=== PATIENT | female | born 1955 | race Two or more races ===

== ENCOUNTER 2024-11-25 08:27 | Inpatient (IN) | payer OTHER ==
[~2024-11-25] VITALS: Ht 171.4 cm; Wt 69.0 kg
--- NOTE | 2024-11-25 08:56 | ED.PDOC ---
GI ASSESSMENT HPI Comments 69 year old female brought in by EMS presents to the ED with a chief complaint of abdominal pain onset 1 week. Per EMS, patient has a PMHx Colon Cancer, Bladder cancer and HTN. Patient has been experiencing RLQ pain that radiates to RUQ for the past week. She is also experiencing nausea, diarrhea generalized weakness, chills. Denies chest pain, vomiting, shortness of breath, cough, congestion, dysuria, hematuria. No other symptoms or modifying factors present at this time. 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 Family History Family History: Reviewed,noncontributory to illness, No family hx of Cancer, No family hx of DM, No family hx of Heart jose roberto, No family hx of HTN, No family hx ofKidney jose roberto, No family hx of Liver jose roberto, No family hx of Lung jose roberto, No family hx of Stroke Social History Smoker: Non-Smoker Alcohol: Denies ETOH Use Drugs: Denies Drug Use Lives In: Home Constitutional: reports: chills, weakness; denies: diaphoresis, fatigue, fever, malaise, sweats, others EENTM: denies: blurred vision, double vision, ear bleeding, ear discharge, ear drainage, ear pain, ear ringing, eye pain, eye redness, hearing loss, mouth pain, mouth swelling, nasal discharge, nose bleeding, nose congestion, nose pain, photophobia, tearing, throat pain, throat swelling, voice changes, others Respiratory: denies: cough, hemoptysis, orthopnea, SOB at rest, shortness of breath, SOB with excertion, stridor, wheezing, others Cardiovascular: denies: chest pain, dizzy spells, diaphoresis, Dyspnea on exertion, edema, irregular heart beat, left arm pain, lightheadedness, palpit ations, PND, syncope, others Gastrointestinal: reports: abdominal pain, diarrhea, nausea; denies: abdomen distended, blood streaked bowels, constipated, dysphagia, difficulty swallowing, hematemesis, melena, poor appetite, poor fluid intake, rectal bleeding, rectal pain, vomiting, others Genitourinary: denies: abnormal vagina bleeding, burning, dyspareunia, dysuria, flank pain, frequency, hematuria, incontinence, pain, , vagina discharge, urgency, others Neurological: denies: dizziness, fainting, headache, left sided numbness, left sided weakness, numbness, paresthesia, pre-existing deficit, right sided numbness, right sided weakness, seizure, speech problems, tingling, tremors, weakness, others Musculoskeletal: denies: back pain, gout, joint pain, joint swelling, muscle pain, muscle stiffness, neck pain, others Integumetry: denies: bruises, change in color, change in hair/nails, dryness, laceration, lesions, lumps, rash, wounds, others Allergic/Immunocompromised: denies: Difficulty Healing, Frequent Infections, Hives, Itching, others Hematologic/Lymphatic: denies: anemia, blood clots, easy bleeding, easy bruising, swollen glands, others Endocrine: denies: excessive hunger, excessive sweating, excessive thirst, excessive urination, flushing, intolerance to cold, intolerance to heat, unexplained weight gain, unexplained weight loss, others Psychiatric: denies: anxiety, bipolar disorder, depression, hopeless, panic disorder, schizophrenia, sleepless, suicidal, others All Other Systems: Reviewed and Negative Physical Exam General Appearance: Moderate Distress, Normal HEENT: Normal ENT Inspection, Pharynx Normal, TMs Normal Neck: Full Range of Motion, Non-Tender, Normal, Normal Inspection Respiratory: Chest Non-Tender, Lungs Clear, No Accessory Muscle Use, No Respiratory Distress, Normal Breath Sounds Cardiovascular: No Edema, No JVD, No Murmur, No Gallop, Normal Peripheral Pulses, Regular Rate/Rhythm Breast Exam: Deferred Gastrointestinal: No Organomegaly, Non Tender, No Pulsatile Mass, Normal Bowel Sounds, Soft Genitalia: Deferred Pelvic: Deferred Rectal: Deferred Extremities: No calf tenderness, Normal capillary refill, Normal inspection, Normal range of motion, Non-tender, No pedal edema Musculoskeletal : Apperance: Normal Neurologic: Alert, voice intercept technician II-XII nml as Tested, No Motor Deficits, Normal Affect, Normal Mood, No Sensory Deficits Cerebellar Function: NOT DONE Reflexes: NOT DONE Skin: Dry, Normal Color, Warm Peripheral Pulses: 3+ Radial (R), 3+ Radial (L) Lymphatic: No Adenopathy Was a procedure done? Was a procedure done?: No GI differential Dx Differential Diagnosis: Constipation, Diverticular disease, Esophagitis, Gastritis/PUD, Gastroenteritis X-Ray, Labs, Meds, VS Vital Signs Date Time Temp Pulse Resp B/P (MAP) Pulse Ox O2 Delivery O2 Flow Rate FiO2 11/25/24 08:35 98.7 77 16 158/76 (103) 95 Lab Test 11/25/24 09:22 11/25/24 09:08 Range/Units White Blood Count 8.8 4.4-10.8 10^3/uL Red Blood Count 4.13 4.0-5.20 10^6/uL Hemoglobin 11.9 L 12.2-16.2 g/dL Hematocrit 36.6 36.0-46.0 % Mean Corpuscular Volume 88.8 80.0-100.0 fL Mean Corpuscular Hemoglobin 28.8 28.0-32.0 pg Mean Corpuscular Hemoglobin Concent 32.4 32.0-36.0 g/dL Red Cell Distribution Width 16.4 H 11.8-14.3 % Platelet Count 539 H 140-450 10^3/uL Mean Platelet Volume 6.5 L 6.9-10.8 fL Neutrophils (%) (Auto) 82.0 H 37.0-80.0 % Lymphocytes (%) (Auto) 11.5 10.0-50.0 % Monocytes (%) (Auto) 5.4 0.0-12.0 % Eosinophils (%) (Auto) 0.3 0.0-7.0 % Basophils (%) (Auto) 0.8 0.0-2.0 % Neutrophils # (Auto) 7.2 1.6-8.6 10 ^3/uL Lymphocytes # (Auto) 1.0 0.4-5.4 10 ^3/uL Monocytes # (Auto) 0.5 0-1.3 10 ^3/uL Eosinophils # (Auto) 0 0-0.8 10 ^3/uL Basophils # (Auto) 0.1 0-0.2 10 ^3/uL Nucleated Red Blood Cells 0.0 % Sodium Level 139 136-145 mmol/L Potassium Level 3.5 3.5-5.1 mmol/L Chloride Level 101 98-107 mmol/L Carbon Dioxide Level 32 H 20-31 mmol/L Anion Gap 6 5-15 Blood Urea Nitrogen 31 H 9-23 mg/dL Creatinine 1.81 H 0.550-1.02 mg/dL Glomerular Filtration Rate Calc 30 >90 mL/min BUN/Creatinine Ratio 17.1 10.0-20.0 Serum Glucose 112 H 74-106 mg/dL Calcium Level 11.5 H 8.7-10.4 mg/dL Troponin I High Sensitivity 5 </=34 ng/L Urine Color Yellow Yellow Urine Clarity Clear Clear Urine pH 7.0 5.0-9.0 Urine Specific [place] 1.024 1.001-1.035 Urine Protein 1+ H Negative Urine Ketones Negative Negative Urine Blood 1+ H Negative /uL Urine Nitrite Negative Negative Urine Bilirubin Negative Negative Urine Urobilinogen 2 H Negative mg/dL Urine Leukocyte Esterase Negative Negative /uL Urine RBC 23 0 - 4 /hpf Urine WBC 3 0 - 5 /hpf Urine Squamous Epithelial Cells Few <5 /hpf Urine Bacteria None seen None Seen /hpf Urine Glucose Normal Normal mg/dL Patient alert. Brought by paramedics. Cancer history. Generalized weakness. WBC within normal limits. Chronic condition. BUN creatinine elevated. Establish intravenous access. Was given fluids. Anemia due to cancer. ATN. Reviewed her history. Explained to the patient. Continue cardiac monitoring. Time of 1ST Reevaluation: 08:57 Reevaluation 1ST: Unchanged Patient Education/Counseling: Diagnosis, Treatment, Prognosis Family Education/Counseling: No Family Present Additional Information I reviewed the following notes from patient's past medical encounters: none The following tests were ordered, and results were reviewed by me: TROP, CBC, XY CHEST, UA, BMP Additional Information was gathered from interviewing the following independent historians: EMS I reviewed and agreed with the following test results read by other providers: XY CHEST I discussed treatment and results with medical personnel and patient Departure 1 Departure Time of Disposition: 17:25 Impression: Primary Impression: Generalized weakness Additional Impressions: ATN (acute tubular necrosis) Anemia Qualified Codes: D64.9 - Anemia, unspecified Disposition: ADMITTED INPATIENT Admit to: Med Surg Condition: Guarded Critical Care Note Critical Care Time?: No Stability Stability form required: No Heart Score Heart Score: Heart Score Response (Comments) Value History N/A 0 EKG N/A 0 Age N/A 0 Risk Factors N/A 0 Troponin N/A 0 Total 0 I personally scribed for ROBSON GRANGER MD ([email or web address]) on 11/25/24 at 08:56. Electronically submitted by Silvia Restrepo ([email or web address]). I personally scribed for ROBSON GRANGER MD ([email or web address]) on 11/25/24 at 09:09. Electronically submitted by Silvia Restrepo ([email or web address]). ROBSON GRANGER MD Nov 25, 2024 08:56
[2024-11-25 09:09] LABS: Urine Bacteria None Seen /hpf (None Seen)
[2024-11-25 09:25] LABS: Urine Blood 1+ /uL (Negative); Urine Clarity Clear (Clear); Urine Color Yellow (Yellow); Urine Protein, UAD 1+ (Negative); Urine Specific Gravity 1.024 (1.001-1.035); Urine Squamous Epithelial Cell FEW /hpf (<5); Urine Urobilinogen 2 mg/dL (Negative); Urine WBC 3 /hpf (0 - 5)
[2024-11-25 09:42] LABS: Basophils # (auto) 0.1 10 ^3/uL (0-0.2); Basophils % (auto) 0.8 % (0.0-2.0); Eosinophils # (auto) 0 10 ^3/uL (0-0.8); Eosinophils % (auto) 0.3 % (0.0-7.0); Hematocrit 36.6 % (36.0-46.0); Hemoglobin 11.9 g/dL (12.2-16.2); Lymphocytes % (auto) 11.5 % (10.0-50.0); Mean Corpuscular Hemoglobin 28.8 pg (28.0-32.0); Mean Corpuscular Hgb Conc. 32.4 g/dL (32.0-36.0); Mean Corpuscular Volume 88.8 fL (80.0-100.0); Monocytes # (auto) 0.5 10 ^3/uL (0-1.3); Monocytes % (auto) 5.4 % (0.0-12.0); Neutrophils # (auto) 7.2 10 ^3/uL (1.6-8.6); Platelet Count (auto) 539 10^3/uL (140-450); Red Blood Cells 4.13 10^6/uL (4.0-5.20); Red Cell Distribution Width 16.4 % (11.8-14.3); White Blood Cell 8.8 10^3/uL (4.4-10.8)
[2024-11-25 09:44] LABS: Chloride 101 mmol/L (98-107); Potassium 3.5 mmol/L (3.5-5.1); Sodium 139 mmol/L (136-145)
[2024-11-25 09:45] LABS: Anion Gap 6 (5-15)
[2024-11-25 09:50] LABS: BUN/Creatinine Ratio 17.1 (10.0-20.0); Blood Urea Nitrogen 31 mg/dL (9-23); Calcium 11.5 mg/dL (8.7-10.4); Carbon Dioxide 32 mmol/L (20-31); Glucose 112 mg/dL (74-106)
--- NOTE | 2024-11-25 10:48 | DVH ---
CHEST RADIOGRAPH Indication: sob Technique: Single frontal view of the chest was obtained COMPARISON: None FINDINGS: Lines and Tubes: None Lungs: Diffuse reticular opacities predominantly in the lung bases may represent chronic lung scarrin g / fibrosis. No focal consolidation is seen. Pleura: No effusion. No pneumothorax. Cardiomediastinal contours: Unremarkable Bones: Scattered osseous degenerative changes. Moderate degenerative changes of the bilateral shoulde rs. IMPRESSION: 1. No acute disease. No focal consolidation. 2. Chronic lung scarring / fibrotic change.
--- NOTE | 2024-11-25 21:46 | DVH ---
Exam: CT CT AB PEL WO CON-NO ORAL OR IV, US ABDOMEN LIMITED History: ruq pain Comparison Study: None available at time of dictation. TECHNIQUE: Multidetector CT of the abdomen was performed from lung bases to pubic symphysis. Imaging was performed without IV contrast. Axial, coronal and sagittal multiplanar reformats were obtained fr om the axial data set by the technologist. Radiation Dose Information: CT Dose: CTDI volume is 5.07 mGy. Dose-length product is 214.18 mGy*cm FINDINGS: Evaluation of solid organs is limited due to lack of intravenous contrast use. Findings: Lung Bases: No acute or significant lung base finding. Normal heart size. No pleural or pericardial effusion. Liver: The liver is normal in size. No focal lesions. Gallbladder and Biliary Tree: Gallbladder appears to have been surgically removed. Spleen: Unremarkable Pancreas: The pancreas is grossly normal in appearance. Adrenal Glands: Unremarkable Kidneys: Kidneys are grossly normal without calculi or hydronephrosis. Bladder: Grossly unremarkable for degree of distention. Bowel: The stomach is grossly normal in appearance. Dilated fluid-filled loops of bowel are noted sug gesting small bowel obstruction.. The appendix is not visualized; however, no secondary findings of acute appendicitis identified. Ascites: Absent Lymphadenopathy: No mesenteric, retroperitoneal or periportal lymphadenopathy. Abdominal Wall and Mesentery: Unremarkable. Vasculature: The visualized abdominal aorta is normal in size and caliber. Evaluation of abdominal a nd pelvic vessels is limited due to lack of intravenous contrast. Pelvic Organs: Unremarkable Musculoskeletal: No aggressive focal bony lesions, acute fractures or dislocation. Soft tissues: Unremarkable IMPRESSION: 1. Postop changes small bowel in the right abdomen. 2. Dilated fluid-filled small bowel is seen suggesting small bowel obstruction. Radiation optimization: All CT scans at this facility use at least one of these dose optimization te chniques: automated exposure control mA and/or kV adjustment per patient size (includes targeted exa ms where dose is matched to clinical indication) or iterative reconstruction. HS:Y
[2024-11-25 22:27] LABS: Alanine Aminotransferase 11 U/L (7-40); Albumin 4.4 g/dL (3.2-4.8); Alkaline Phosphatase 115 U/L (46-116); Anion Gap 9 (5-15); Aspartate Aminotransferase 20 U/L (13-40); BUN/Creatinine Ratio 15.2 (10.0-20.0); Bilirubin, Total 0.4 mg/dL (0.2-1.0); Carbon Dioxide 26 mmol/L (20-31); Chloride 102 mmol/L (98-107); Potassium 3.9 mmol/L (3.5-5.1); Sodium 137 mmol/L (136-145); Total Protein 7.1 g/dL (5.7-8.2)
[2024-11-25 22:29] LABS: Blood Urea Nitrogen 31 mg/dL (9-23); Calcium 11.1 mg/dL (8.7-10.4); Glucose 126 mg/dL (74-106)
[2024-11-25 22:39] LABS: Lipase 46 U/L (12-53)
[2024-11-25] MEDS ORDERED: NITROGLYCERIN 0.4 MG SL TAB SL PRN (23:30)
[2024-11-25] MEDS ORDERED: MORPHINE SULFATE INJ 2 MG/ml SYRG IV PRN (23:30)
[2024-11-26] MEDS: SODIUM CHLORIDE 0.9% 1,000 ML IV SCH (00:21)
[2024-11-26 00:24] VITALS: PULSE 97; RESP 18; O2SAT 97
[2024-11-26] MEDS: ONDANSETRON HCL 4 MG/2 ML VIAL IV PRN (00:30)
[2024-11-26] MEDS: MORPHINE SULFATE INJ 2 MG/ml SYRG IV PRN (00:32)
--- NOTE | 2024-11-26 02:32 | DVHHP ---
ADMIT DATE: 11/25/2024 CHIEF COMPLAINT: Coming in with abdominal pain, nausea, and vomiting. HISTORY OF PRESENT ILLNESS: This is a 69-year-old female with significant past medical history of colon cancer, status post resection in 2000; left kidney cancer, status post nephrectomy in 2021 and a partial bladder resection in 2022, secondary to malignancy; underlying essential hypertension; and chronic kidney disease as well as acid reflux; who presents to Emergency Room with a chief complaint of upper abdominal quadrant pain with nausea and vomiting, reduced appetite. The patient says in the last few weeks, she has been dealing with abdominal pain; and has been started on a stool softener, which partially helped her. She has been having no bowel movements for few weeks' now. The last was last Tuesday, and she had a small one and apparently that was loose in nature. Today on arriving here to the Emergency Room, the patient says that she has also been feeling nauseous off-and-on, but no vomiting and she has not been eating much. She says everytime she eats or drinks, she feels nauseous, typically she says in the mornings. She has not had any fevers or chills, but feels like she has might have had some chills. No bloody or tarry stools. Otherwise, no chest pain or shortness of breath; no cough; no phlegm; no urinary frequency, urgency, or burning sensation. She said her last colonoscopy for cancer screening routine was about 6 years' ago. She was scheduled to have a colonoscopy a week ago, but never went to her appointment. PAST MEDICAL HISTORY: * Colon cancer. * Left kidney cancer. * Bladder cancer. * Essential hypertension. * Chronic kidney disease. * Acid reflux. PAST SURGICAL HISTORY: * Colon resection in 2000. * Left kidney nephrectomy in April 2022. * Partial bladder resection in 2022. SOCIAL HISTORY: She is a tobacco user, about 8 cigarettes a day, she has been smoking for over 30 years. No alcohol. No illicit drugs. MEDICATIONS: At home per medical reconciliation. MEDICATION ALLERGIES: TO CODEINE, CAUSES NAUSEA. REVIEW OF SYSTEMS: A 10-point review of system was covered with the patient and was negative, with the exception to all present in history of present illness. PHYSICAL EXAMINATION: VITAL SIGNS: Temperature of 98.3, pulse rate of 97, respiratory rate of 18, blood pressure of 134/68, pulse ox about 97% on room air. GENERAL: Seems to be alert and oriented x1, not in acute distress female, sitting up in a chair. HEENT: Normocephalic, atraumatic. Extraocular muscles are intact. Pupils are equally round, reactive to light and accommodations. Mucous membranes were dry. CARDIOVASCULAR: S1, S2 positive, tachycardic rhythm. No rubs, gallops, or murmurs. LUNGS: Clear to auscultation bilaterally. No wheeze, rhonchi, or rales. ABDOMEN: Seems to be soft, nontender. Seems to have some tenderness in the upper abdominal quadrants. No guarding. No rebound. Hypoactive bowel sounds, and no abdominal rigidity. Brown's sign was negative. EXTREMITIES: No lower extremity edema, clubbing, or cyanosis. NEUROLOGIC: No focal deficits. Cranial nerves testing II through XII overall seems to be intact. LABORATORY WORKUP: Shows a white count of 8.8, H and H of 11.9/36.2, platelet count of 539,000 with a neutrophil shift of 82%. Sodium of 139, potassium of 3.5, chloride of 101, carbon dioxide of 32, anion gap of 6, BUN of 31, creatinine of 1.81, estimated GFR of 30. Serum glucose of 112. AST of 20, ALT of 11, alkaline phosphatase of 115. Troponins of 5. Lipase of 46. Urinalysis was negative for nitrites, negative for leukocyte esterase, 23 rbc's, 3 wbc's. IMAGING: Chest x-ray was completed, it shows no acute disease, no focal consolidation. CT abdomen and pelvis without contrast was also completed, it shows postop changes in the small bowel and the right abdomen dilated; fluid-filled small bowel are seen, suggesting small bowel obstruction. Single organ ultrasound, the liver measures 12.2 in length and appears homogeneous; gallbladder is unremarkable; and common bile duct was not visualized. Negative ultrasound. Brown's sign was elicited. The right kidney was surgically removed in 2021. DIAGNOSES: * Abdominal pain. * Dehydration. * Renal insufficiency. PLAN: The patient will be admitted to medical/surgical floor under observation status for abdominal pain monitoring. The patient to have consultation with Dr. Hansen, General Surgery for evaluation for possible underlying small bowel obstruction. The patient will be maintained n.p.o. at this point in time. IV fluid hydration with normal saline. Strict I's and O's to be implemented. Pain control with morphine 2 mg IV p.r.n. for [id number] pain, Zofran 4 mg IV p.r.n. for nausea and vomiting. The patient to have a small bowel follow through in the a.m. The patient is a full code. SCDs to bilateral lower extremities for DVT prophylaxis. The patient will be placed on Protonix 40 mg IV daily for history of acid reflux. Further recommendations will depend on the patient's hospital progression. Brad Fernandez MD LM/ZAKI TID: [id number] RECEIPT: [id number]
[2024-11-26 07:24] LABS: Anion Gap 7 (5-15); Carbon Dioxide 28 mmol/L (20-31); Chloride 103 mmol/L (98-107); Potassium 3.6 mmol/L (3.5-5.1); Sodium 138 mmol/L (136-145)
[2024-11-26 07:25] LABS: Calcium 10.1 mg/dL (8.7-10.4)
[2024-11-26 07:30] LABS: BUN/Creatinine Ratio 20.3 (10.0-20.0); Glucose 98 mg/dL (74-106)
[2024-11-26 07:35] LABS: Blood Urea Nitrogen 40 mg/dL (9-23)
[2024-11-26 07:47] LABS: Basophils # (auto) 0 10 ^3/uL (0-0.2); Basophils % (auto) 0.4 % (0.0-2.0); Eosinophils # (auto) 0 10 ^3/uL (0-0.8); Eosinophils % (auto) 0.2 % (0.0-7.0); Hemoglobin 10.2 g/dL (12.2-16.2); Lymphocytes # (auto) 1.1 10 ^3/uL (0.4-5.4); Lymphocytes % (auto) 15.1 % (10.0-50.0); Mean Corpuscular Hemoglobin 29.6 pg (28.0-32.0); Mean Corpuscular Hgb Conc. 34.1 g/dL (32.0-36.0); Mean Corpuscular Volume 86.9 fL (80.0-100.0); Monocytes # (auto) 0.6 10 ^3/uL (0-1.3); Monocytes % (auto) 7.7 % (0.0-12.0); Neutrophils # (auto) 5.8 10 ^3/uL (1.6-8.6); Neutrophils % (auto) 76.6 % (37.0-80.0); Nucleated Red Blood Cells % 0.1 %; Platelet Count (auto) 469 10^3/uL (140-450); Red Blood Cells 3.46 10^6/uL (4.0-5.20); Red Cell Distribution Width 15.4 % (11.8-14.3); White Blood Cell 7.6 10^3/uL (4.4-10.8)
[2024-11-26 08:00] VITALS: PULSE 72; RESP 16; O2SAT 97
[2024-11-26 09:52] LABS: INR 1.03 (0.9-1.15); Prothrombin Time 10.9 sec (9.3-11.8)
[2024-11-26] MEDS: PANTOPRAZOLE 40 MG/10 ML VIAL INJ IV SCH (09:54)
[2024-11-26] MEDS: LACTATED RINGER'S 1,000 ML IV ONE (09:57)
[2024-11-26] MEDS ORDERED: GASTROGRAFIN 120 ML SOL ONE (09:57)
[2024-11-26 11:14] LABS: INR 1.03 (0.9-1.15); Partial Thromboplastin Time 26.6 SEC (24.5-34.5); Prothrombin Time 10.9 sec (9.3-11.8)
--- NOTE | 2024-11-26 12:50 | DVH ---
Procedure: XY SMALL BOWEL SERIES-W GASTROGRA Reason for study/Clinical History: abdominal pain Comparison Study: None available at time of dictation. Technique: Single contrast small bowel series performed. 20 mL given FINDINGS/IMPRESSION: Initial navy senior officer view of the abdomen and pelvis appears demonstrates no acute process. Contrast is identified within the colon by 2 hours. This represents a normal small bowel transit gregory clarke
--- NOTE | 2024-11-26 14:59 | DVHDS2 ---
New Physician D'charge PN Admitting Diagnosis Admitting Diagnosis sbo Discharge Diagnosis sbo, resolved Operations or Procedures small bowel series negative Reason(s) For Hospitalization Surgery Hospital Course 69 F who comes to ER for abd pain and n/v. Her CT abdomen revealed dilated loops of bowel suggestive of SBO. She was kept NPO and NG suction was started, Surgical consult was obtained and she underwent a small bowel series which showed no obstruction and normal transit of contrast. Surgery started on her clear liquid diet and the NG tube was discontinued. She is advanced to a clear liquid diet and if she tolerates her diet she can be discharged home. [facility] follow up. Treatment Plan Discharge Condition of Discharge Good Disposition Home Discharge Instructions Diet: Regular Diet comment: IF CLEAR LIQUID IS TOLERATED Activity: No Restrictions, As Tolerated Medications: see med sheet Follow Up Care Follow Up/Referral: pcp Discharge Statement: "Patient was advised to return to the ER or call 911 if any headaches, dizziness, shortness of breath, chest pain, abdominal pain, bleeding, fevers, or worsening of medical condition. Patient was counseled about treatment plan, medications, possible side effects, patientverbalized understanding. All questions were answered to the best of my ability. This discharge took greater then 30 minutes in planning, reviewing docum entation, counseling the patient, and discussing with other team members." NELSON BREWER MD Nov 26, 2024 14:59
[2024-11-26] MEDS ORDERED: HYDROmorphone HCL 2 MG/ML VL/or syr IV ONE (15:15)
--- NOTE | 2024-11-26 15:38 | DVHINCON2 ---
Date of service: Nov 26, 2024 History of Present Illness 69-year-old female with a history of multiple abdominal surgeries including a colectomy and left nephrectomy and partial bladder resection all for cancer now complaining of diffuse abdominal pain associated with nausea and vomiting. Patient reports no bowel movement for past several days. Denies any fevers or chills. Past Medical History Hypertension. Hyperlipidemia. History of colon cancer, bladder cancer, and kidney cancer. Past Surgical History As mentioned in HPI Family History Noncontributory Social History Smokes eight cigarettes a day. No alcohol for IV drug use. Allergies: Coded Allergies: Codeine (Verified Allergy, Unknown, 11/25/24) Current Medications Current Medications Medications (Trade) Dose Ordered Sig/Annette Route PRN Reason Start Time Stop Time Status Last Admin Sodium Chloride 1,000 ml @ 120 mls/hr Q8H20M IV 11/25/24 23:30 11/26/24 12:55 Ondansetron HCl (Zofran) 4 mg Q4HP PRN IV NAUSEA / VOMITING 11/25/24 23:30 11/26/24 00:30 Morphine Sulfate 2 mg Q4HPRN PRN IV SEVERE PAIN (7-10 PAIN SCALE) 11/25/24 23:30 11/26/24 11:20 Nitroglycerin (Ntrostat Sublingual) 0.4 mg Q5MINP PRN SL FOR CHEST PAIN 11/25/24 23:30 Morphine Sulfate 2 mg Q30M PRN IV FOR CHEST PAIN 11/25/24 23:30 Pantoprazole Sodium (Protonix) 40 mg DAILY IV 11/26/24 10:00 11/26/24 09:54 Vital Signs Vital Signs Date Time Temp Pulse Resp B/P (MAP) Pulse Ox O2 Delivery O2 Flow Rate FiO2 11/26/24 12:00 73 11 130/64 (86) 96 11/26/24 08:00 Room Air* 0 21 11/26/24 07:00 97.9 97.9 Physical Exam GEN: Age-appropriate female in no acute distress. Alert. HEENT: Normocephalic atraumatic. Moist mucous membranes. Anicteric sclerae. CV: RRR Respiratory: CTAB ABD: Well-healed midline incisional scar. There was diffuse tenderness to palpation with moderate distention. CT of the abdomen and pelvis: Dilated fluid-filled small bowel suggesting small bowel obstruction. Labs/Diagnostic Data Labs Test 11/26/24 10:18 11/26/24 06:02 11/25/24 22:00 11/25/24 09:22 Range/Units Prothrombin Time 10.9 9.3-11.8 sec Prothrombin Time INR 1.03 0.9-1.15 Activated Partial Thromboplast Time 26.6 24.5-34.5 SEC White Blood Count 7.6 4.4-10.8 10^3/uL Red Blood Count 3.46 L 4.0-5.20 10^6/uL Hemoglobin 10.2 L 12.2-16.2 g/dL Hematocrit 30.0 #L 36.0-46.0 % Mean Corpuscular Volume 86.9 80.0-100.0 fL Mean Corpuscular Hemoglobin 29.6 28.0-32.0 pg Mean Corpuscular Hemoglobin Concent 34.1 32.0-36.0 g/dL Red Cell Distribution Width 15.4 H 11.8-14.3 % Platelet Count 469 H 140-450 10^3/uL Mean Platelet Volume 6.9 6.9-10.8 fL Neutrophils (%) (Auto) 76.6 37.0-80.0 % Lymphocytes (%) (Auto) 15.1 10.0-50.0 % Monocytes (%) (Auto) 7.7 0.0-12.0 % Eosinophils (%) (Auto) 0.2 0.0-7.0 % Basophils (%) (Auto) 0.4 0.0-2.0 % Neutrophils # (Auto) 5.8 1.6-8.6 10 ^3/uL Lymphocytes # (Auto) 1.1 0.4-5.4 10 ^3/uL Monocytes # (Auto) 0.6 0-1.3 10 ^3/uL Eosinophils # (Auto) 0 0-0.8 10 ^3/uL Basophils # (Auto) 0 0-0.2 10 ^3/uL Nucleated Red Blood Cells 0.1 % Sodium Level 138 136-145 mmol/L Potassium Level 3.6 3.5-5.1 mmol/L Chloride Level 103 98-107 mmol/L Carbon Dioxide Level 28 20-31 mmol/L Anion Gap 7 5-15 Blood Urea Nitrogen 40 H 9-23 mg/dL Creatinine 1.97 H 0.550-1.02 mg/dL Glomerular Filtration Rate Calc 27 >90 mL/min BUN/Creatinine Ratio 20.3 H 10.0-20.0 Serum Glucose 98 74-106 mg/dL Calcium Level 10.1 8.7-10.4 mg/dL Total Bilirubin 0.4 0.2-1.0 mg/dL Aspartate Amino Transferase (AST) 20 13-40 U/L Alanine Aminotransferase (ALT) 11 7-40 U/L Alkaline Phosphatase 115 46-116 U/L Total Protein 7.1 5.7-8.2 g/dL Albumin 4.4 3.2-4.8 g/dL Lipase 46 12-53 U/L Troponin I High Sensitivity 5 </=34 ng/L Test 11/25/24 09:08 Range/Units Urine Color Yellow Yellow Urine Clarity Clear Clear Urine pH 7.0 5.0-9.0 Urine Specific Daisy 1.024 1.001-1.035 Urine Protein 1+ H Negative Urine Ketones Negative Negative Urine Blood 1+ H Negative /uL Urine Nitrite Negative Negative Urine Bilirubin Negative Negative Urine Urobilinogen 2 H Negative mg/dL Urine Leukocyte Esterase Negative Negative /uL Urine RBC 23 0 - 4 /hpf Urine WBC 3 0 - 5 /hpf Urine Squamous Epithelial Cells Few <5 /hpf Urine Bacteria None seen None Seen /hpf Urine Glucose Normal Normal mg/dL Assessment 1. SBO Plan/Recommendation 1. f/u KUB. Previous small-bowel follow-through report says that it goes to the colon in 2 hours however upon reviewing with Dr. Abdi the radiologist, we are not convinced the contrast is in the colon. Therefore we will repeat a KUB. If the KUB shows no improvement, patient will need an NG tube to low intermitt ent suction. Plan discussed with: Patient IVIS PARKINSON MD Nov 26, 2024 15:38
--- NOTE | 2024-11-26 16:16 | DVH ---
Date: 11/26/2024 04:01 PM Examination: XY KUB ABDOMEN SINGLE VIEW History: SBO Comparison: None TECHNIQUE: Frontal views of the abdomen was obtained. FINDINGS: Bowel gas pattern is unremarkable. The lung bases are unremarkable. No acute osseous abnormality identified. IMPRESSION: 1. Nonobstructive bowel gas pattern. 2. Oral contrast in the stomach small bowel and colon.
[2024-11-26] MEDS: HYDROmorphone HCL 2 MG/ML VL/or syr IV ONE (16:34)
--- NOTE | 2024-11-26 18:04 | DVH ---
Exam: CT CT AB PEL WO CON-NO ORAL OR IV History: sbo f/u Comparison Study: None available at time of dictation. TECHNIQUE: Multidetector CT of the abdomen was performed from lung bases to pubic symphysis. Imaging was performed without IV contrast. Axial, coronal and sagittal multiplanar reformats were obtained fr om the axial data set by the technologist. Radiation Dose Information: CT Dose: CTDI volume is 6.3 mGy. Dose-length product is 330.63 mGy*cm FINDINGS: Evaluation of solid organs is limited due to lack of intravenous contrast use. Findings: Lung Bases: No acute or significant lung base finding. Normal heart size. No pleural or pericardial effusion. Liver: The liver is normal in size. No focal lesions. Gallbladder and Biliary Tree: Unremarkable Spleen: Unremarkable Pancreas: The pancreas is grossly normal in appearance. Adrenal Glands: Unremarkable Kidneys: Right kidney is not visualized. Correlate with surgical history. Bladder: Grossly unremarkable for degree of distention. Bowel: The stomach is grossly normal in appearance. Small bowel and colon are normal in caliber and d istribution. Oral contrast noted throughout the small bowel and colon no findings to suggest small german wel obstruction. Narrowing of the lumen of the sigmoid colon recommend sigmoidoscopy. The appendix is not visualized; however, no secondary findings of acute appendicitis identified. Ascites: Absent Lymphadenopathy: No mesenteric, retroperitoneal or periportal lymphadenopathy. Abdominal Wall and Mesentery: Unremarkable. Vasculature: The visualized abdominal aorta is normal in size and caliber. Evaluation of abdominal a nd pelvic vessels is limited due to lack of intravenous contrast. Pelvic Organs: Unremarkable Musculoskeletal: No aggressive focal bony lesions, acute fractures or dislocation. Soft tissues: Unremarkable IMPRESSION: 1. No findings to suggest small bowel obstruction. 2. Narrowing of the lumen of the sigmoid colon recommend sigmoidoscopy. ( Series 2 images 58- 64 ) Radiation optimization: All CT scans at this facility use at least one of these dose optimization te chniques: automated exposure control mA and/or kV adjustment per patient size (includes targeted exa ms where dose is matched to clinical indication) or iterative reconstruction.
[2024-11-26 19:30] VITALS: PULSE 89; RESP 16; O2SAT 97
[2024-11-26 22:29] VITALS: BP 140/77; PULSE 80; RESP 18; O2SAT 96
[2024-11-26 22:56] VITALS: BP 140/77; PULSE 80; RESP 18; TEMP 98; O2SAT 96
[2024-11-26 23:06] VITALS: BP 140/77; PULSE 80; RESP 18; TEMP 98; O2SAT 96
[2024-11-27] VITALS (8 sets, daily range): BP systolic 121–131; BP diastolic 59–79; PULSE 69–80; RESP 17–19; TEMP 97.5–98.6; O2SAT 93–96
[2024-11-27 07:03] LABS: Basophils # (auto) 0 10 ^3/uL (0-0.2); Eosinophils # (auto) 0 10 ^3/uL (0-0.8); Eosinophils % (auto) 0.3 % (0.0-7.0); Lymphocytes % (auto) 13.7 % (10.0-50.0); Mean Corpuscular Hgb Conc. 33.5 g/dL (32.0-36.0); Mean Corpuscular Volume 87.6 fL (80.0-100.0)
[2024-11-27 07:07] LABS: Basophils % (auto) 0.4 % (0.0-2.0); Hematocrit 30.2 % (36.0-46.0); Hemoglobin 10.1 g/dL (12.2-16.2); Mean Corpuscular Hemoglobin 29.4 pg (28.0-32.0); Monocytes # (auto) 0.7 10 ^3/uL (0-1.3); Monocytes % (auto) 9.4 % (0.0-12.0); Neutrophils # (auto) 5.5 10 ^3/uL (1.6-8.6); Neutrophils % (auto) 76.2 % (37.0-80.0); Nucleated Red Blood Cells % 0.1 %; Platelet Count (auto) 470 10^3/uL (140-450); Red Blood Cells 3.44 10^6/uL (4.0-5.20); White Blood Cell 7.2 10^3/uL (4.4-10.8)
[2024-11-27 07:15] LABS: Anion Gap 9 (5-15); Calcium 9.7 mg/dL (8.7-10.4); Carbon Dioxide 25 mmol/L (20-31); Potassium 3.9 mmol/L (3.5-5.1); Sodium 143 mmol/L (136-145)
[2024-11-27 07:20] LABS: Chloride 109 mmol/L (98-107)
[2024-11-27 07:21] LABS: BUN/Creatinine Ratio 24.8 (10.0-20.0); Glucose 77 mg/dL (74-106)
[2024-11-27 07:26] LABS: Blood Urea Nitrogen 40 mg/dL (9-23)
--- NOTE | 2024-11-27 10:21 | DVH ---
Exam: XY KUB ABDOMEN SINGLE VIEW Indication: sbo Comparison: XY KUB ABDOMEN SINGLE VIEW on DOS: 11/26/24 Technique: 2 radiographic views of the abdomen. Findings: Enteric contrast is present in the colon. Nonspecific bowel-gas pattern. There is no definite evidence for pneumoperitoneum. No abnormal calcifications noted. Impression: Enteric contrast is present in the colon. Nonspecific bowel-gas pattern.
--- NOTE | 2024-11-27 15:28 | DVHPN2 ---
Progress Note - Dictate Date Seen: Nov 27, 2024 Has the PT tested + for MRSA If YES, has PT been informed?: No Medical Necessity Reason Pt with a Central, PICC or Fol: No Subjective E: no major events o/n. doing better. fabrice clear liquid diet. vital signs Vital Sign Date Time Temp Pulse Resp B/P (MAP) Pulse Ox O2 Delivery O2 Flow Rate FiO2 11/27/24 14:38 86 18 135/67 11/27/24 13:00 97.5 95 97.5 11/26/24 19:30 Room Air* 0 21 Total Intake and Output 11/26/24 11/26/24 11/27/24 15:00 23:00 07:00 Intake Total 1520 ml 760 ml 300 ml Balance 1520 ml 760 ml 300 ml medications Current Medications Medications Dose Ordered Sig/Annette Route Start Time Stop Time Status Last Admin Dose Admin Sodium Chloride 1,000 ml @ 120 mls/hr [id number] IV 11/25/24 23:30 11/26/24 21:40 120 MLS/HR Ondansetron HCl 4 mg Q4HP PRN IV 11/25/24 23:30 11/26/24 00:30 4 MG Morphine Sulfate 2 mg Q4HPRN PRN IV 11/25/24 23:30 11/27/24 14:08 2 MG Nitroglycerin 0.4 mg Q5MINP PRN SL 11/25/24 23:30 Morphine Sulfate 2 mg Q30M PRN IV 11/25/24 23:30 Pantoprazole Sodium 40 mg DAILY IV 11/26/24 10:00 11/27/24 10:09 40 MG objective GEN: NAD ABD: soft. with min TTP but improved. laboratory and microbiology Laboratory Tests 11/27/24 05:49 Test 11/27/24 05:49 Range/Units Serum Glucose 77 74-106 mg/dL Assessment/Plan A: 1. resolving pSBO P: 1. advance diet slowly 2. stable from surgery POV. Plan discussed with: Patient IVIS PARKINSON MD Nov 27, 2024 15:28
[2024-11-28 01:00] VITALS: BP 122/70; PULSE 85; RESP 18; TEMP 98.6; O2SAT 98
[2024-11-28 05:00] VITALS: BP 121/68; PULSE 86; RESP 18; TEMP 98.2; O2SAT 99
[2024-11-28 08:00] VITALS: PULSE 88; RESP 16; O2SAT 95
[2024-11-28 08:15] VITALS: BP 126/2; PULSE 88; RESP 16; TEMP 97.9; O2SAT 95
== END 2024-11-28 09:38 | disposition home or self-care (01) | DRG 390 ==
LOC: ER 08:27 → EDBD 08:27 → OVERFLOW 23:28 → WEST WING 11-26 21:50
PROVIDERS: ADMIT Hospitalist; ATTEND Hospitalist
PROC: 0D9670Z Drainage of Stomach with Drainage Device, Via Natural or Artificial Opening (ICD-10-PCS; principal; 2024-11-26)
DX: K56.600 Partial intestinal obstruction, unspecified as to cause (principal); E86.0 Dehydration; D64.9 Anemia, unspecified; E78.5 Hyperlipidemia, unspecified; F17.210 Nicotine dependence, cigarettes, uncomplicated; I12.9 Hypertensive chronic kidney disease with stage 1 through stage 4 chronic kidney disease, or unspecified chronic kidney disease; N18.9 Chronic kidney disease, unspecified; Z85.038 Personal history of other malignant neoplasm of large intestine; Z85.51 Personal history of malignant neoplasm of bladder; Z85.528 Personal history of other malignant neoplasm of kidney; Z90.49 Acquired absence of other specified parts of digestive tract; Z90.5 Acquired absence of kidney; Z88.6 Allergy status to analgesic agent
CPT/HCPCS: 36415; 71045; 74018; 74176; 74250; 76705; 80048; 80053; 81001; 83690; 84484; 85025; 85610; 85730; G0378; J2405; J2470